=== PATIENT | male | born 1975 | race Caucasian/White ===

== ENCOUNTER 2018-05-19 09:10 | Day surgery (SDC) | payer BC ==
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
[2018-05-19] MEDS ORDERED: POLYMYXIN B SULFATE 500,000 UNIT/10 ML SYR IRR ONE (09:34)
[2018-05-19] MEDS ORDERED: BACITRACIN 50,000 UNITS/10 ML SYR IRR ONE (09:34)
[2018-05-19] MEDS ORDERED: ceFAZolin 2 GM/DEXTROSE 100 ML IV ONE (09:57)
[2018-05-19] MEDS ORDERED: LR 1,000 ML IV ONE (09:58)
[2018-05-19] MEDS ORDERED: LIDOCAINE 1% 2 ML INJ ID PRN (09:58)
[2018-05-19] MEDS ORDERED: BUPIVACAINE/EPI 0.5% 30 ML SDV ONE (10:18)
[2018-05-19] MEDS ORDERED: HYDROmorphONE/DILAUDID 2 MG/ML INJ IVP PRN (11:26)
[2018-05-19] MEDS ORDERED: ACETAMINOPHEN 500 MG TAB PO PRN (11:26)
[2018-05-19] MEDS ORDERED: oxyCODONE IR 5 MG TAB PO PRN (11:26)
[2018-05-19] MEDS ORDERED: MIDAZOLAM 2 MG/2 ML VIAL IVP ONE (11:26)
[2018-05-19] MEDS ORDERED: DEXAMETHASONE 4 MG/ML VIAL IVP PRN (11:26)
[2018-05-19] MEDS ORDERED: ONDANSETRON 4 MG/2 ML VIAL IVP PRN ×2 (11:26→12:32)
[2018-05-19] MEDS ORDERED: ALBUTEROL 3 ML DEYVIAL IH PRN (11:26)
[2018-05-19] MEDS ORDERED: NALOXONE HCL 0.4 MG/ML INJ IVP PRN (11:26)
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
[2018-05-19] MEDS ORDERED: PROPOFOL 200 MG/20 ML VIAL ONE (11:41)
[2018-05-19] MEDS ORDERED: fentaNYL 100 MCG/2 ML INJ ONE ×2 (11:42→13:09)
[2018-05-19] MEDS ORDERED: HYDROmorphONE/DILAUDID 2 MG/ML INJ ONE (11:48)
[2018-05-19] MEDS ORDERED: ROCURONIUM 50 MG/5 ML VIAL ONE (11:50)
[2018-05-19] MEDS ORDERED: DEXAMETHASONE 4 MG/ML VIAL ONE (11:50)
[2018-05-19] MEDS ORDERED: ONDANSETRON 4 MG/2 ML VIAL ONE (11:50)
[2018-05-19] MEDS ORDERED: ONDANSETRON DISINTEGRATING 4 MG TAB PO PRN (12:32)
[2018-05-19] MEDS ORDERED: OXYCODONE/APAP 5/325 TAB PO PRN (12:32)
--- NOTE | 2018-05-19 12:35 | POSTOPPROG ---
Post Op Note Date of Operation: 05/19/18 Surgeon: Pankaj Talbert Electromechanical Technologist: Nicole Tai Anesthesiologist: Kira Anesthesia: GET(General Endotracheal) Pre-op Diagnosis: left hip heterotropic calcification Post-op Diagnosis: left hip heterotropic calcification Procedure: left hip heterotropic ossification excision Inf/Abcess present in the surg proc area at time of surgery?: No Depth: Deep Incisional (Fascial) EBL: Minimal
--- NOTE | 2018-05-19 12:41 | POSTANESTH ---
Post Anesthetic Evaluation Cardiovascular Status: Normal, Stable Respiratory Status: Normal, Stable Level of Consciousness/Mental Status: Mildly Sleepy, Arousable Pain Control: Adequate, Prn Tx Ordered Nausea/Vomiting Control: Adequate, Prn Tx Ordered Complications Possibly Related to Anesthesia: None Noted
--- NOTE | 2018-05-19 12:52 | POSTOPPROG ---
Post Op Note Date of Operation: 05/19/18 Surgeon: Pankaj Talbert Mechanical Engineering Technologist: Nicole Phillips Anesthesiologist: Kira Anesthesia: GET(General Endotracheal) Pre-op Diagnosis: HO LT hip Post-op Diagnosis: same Indication: Pain Procedure: HO excision LT hip Inf/Abcess present in the surg proc area at time of surgery?: No EBL: 50-100 Complications: none
--- NOTE | 2018-05-19 13:01 | GOP ---
DATE OF OPERATION: 05/19/2018 SURGEON: Pankaj Talbert MD POULTRY HATCHERY MANAGER: Nicole Tai PA-C ANESTHESIA: Dr. Malone PREOPERATIVE DIAGNOSIS: Heterotopic ossification, left hip. POSTOPERATIVE DIAGNOSIS: Heterotopic ossification, left hip. PROCEDURE PERFORMED: Excision heterotopic ossification, left hip. FINDINGS: INDICATIONS: The patient is a 42 -year-old male who underwent femoral nailing about 8 years ago. He has since developed heterotopic ossification at the entry point. It is quite uncomfortable for him. It has failed to improve with conservative measures. Decision was made to proceed with excision of the heterotopic ossification. DESCRIPTION OF PROCEDURE: After appropriate informed consent was obtained, patient was taken to the operating room, placed supine on the operating table. Time-out was performed. Patient was identified, correct site was identified, matched with radiographs available in the room. He received 2 g of Ancef preoperatively. Following general endotracheal tube anesthesia, he was positioned in the lateral position on a beanbag with all bony prominences well padded, the left side was up. Left hip was prepped and draped in usual sterile fashion. Using the previous incision, I extended it slightly proximal. Soft tissue was carefully dissected. IT band was incised. The heterotopic ossification was just beneath that. It was carefully freed from surrounding tissues and removed. The wound was irrigated. Bleeding was controlled electrocautery. Deep layer and ITB was closed with 0 Vicryl, superficial layers were closed with 2-0 Vicryl. Skin was closed with a 3-0 barbed stitch in a subcuticular fashion. I instilled 20 mL of 0.5% Marcaine with epinephrine into the skin and surrounding incision. Sterile dressing was applied. The patient was awakened from anesthesia, taken to recovery room in satisfactory condition. There were no immediate intraoperative complications. Nicole Tai's assistance was required throughout the entire case. ANESTHESIA: General. COMPLICATIONS: None. DRAINS: None. /[id number]/MODL MTDD
[2018-05-19] MEDS: fentaNYL 100 MCG/2 ML INJ IVP PRN ×2 (13:13→13:31)
[2018-05-19] MEDS ORDERED: oxyCODONE IR 5 MG TAB ONE (13:37)
[2018-05-19 16:54] VITALS: BP 125/88
== END 2018-05-19 15:30 | disposition home or self-care (01) ==
LOC: FSGY 09:10
PROVIDERS: ATTEND Orthopaedic Surgery
PROC: 0KBP0ZZ Excision of Left Hip Muscle, Open Approach (ICD-10-PCS; principal; 2018-05-19 10:45)
DX: M61.48 Other calcification of muscle, other site (principal); I69.854 Hemiplegia and hemiparesis following other cerebrovascular disease affecting left non-dominant side; Z87.81 Personal history of (healed) traumatic fracture; Z87.820 Personal history of traumatic brain injury
CPT/HCPCS: J0690; J1100; J1170; J2250; J2405; J2704; J3010